=== PATIENT | female | born 1955 ===

== ENCOUNTER 2019-09-01 08:09 | Day surgery (SDC) | payer OTHER ==
[~2019-09-01 08:09] MED LIST: ATORVASTATIN CA10 MG PO; JARDIANCE10 MG PO; SYNTHROID175 MCG PO; VITAMIN B-122500 MCG SL; VITAMIN C500 M6 PO; VITAMIN D310 MCG/1 M PO
[2019-09-01] MEDS ORDERED: ULTRACET PO (13:10)
[2019-09-01] MEDS ORDERED: DUI500 PO (13:10)
== END 2019-09-01 18:00 | disposition home or self-care (01) ==
LOC: CIR.AMB 08:09 → EDBD 08:15 → ADM 08:15 → CIR.AMB 08:15
PROVIDERS: ATTEND Orthopaedic Surgery Sports Medicine
DX: M23.322 Other meniscus derangements, posterior horn of medial meniscus, left knee (principal); M65.862 Other synovitis and tenosynovitis, left lower leg